=== PATIENT | male | born 1960 | race Caucasian/White ===

== ENCOUNTER 2025-05-28 09:23 | Outpatient (OUT) | payer OTHER, SELFPAY ==
--- OUTSIDE RECORDS SUMMARY | 2025-05-23 19:11 | XMS_ITS | Continuity of Care Document ---
Author Organization [facility] Address [address] [place] [address] Phone Care Team Providers Care Range Mounter Name Role Phone Dewey Harrington DO Primary Care Provider Dewey Harrington DO Attending Provider Care Teams Patient Care Team Team Status: Active Member Role/Relationship Status Dates Dewey Harrington DO Primary Care Provider Active Visit Care Team Team Status: Inactive Member Role/Relationship Status Dates Dewey Harrington DO Primary Care Provider Active Sta rt: May 16, 2025 End: May 16lidya Harrington DOAttchio ProviderActiveStart: May 16, 2025 End: May 16, 2025 Visit Care Team Team Status: Inactive Member Role/Relationship Status Dates Dewey Harrington DO Primary Care Provider Active Sta rt: May 23, 2025 End: May 23lidya Harrington DOAttending ProviderActiveStart: May 23, 2025 End: May 23, 2025 Visit Care Team Team Status: Inactive Member Role/Relationship Status Dates Dewey Harrington DO Primary Care Provider Active Sta rt: May 23, 2025 End: May 23lidya Harrington DOAttending ProviderActiveStart: May 23, 2025 End: May 23, 2025 Chief Complaint and Reason for Visit Chief Complaint Admit Date Medicare AWV Subsequent May 23, 9:48am Reason for Visit Admit Date Polycythemia May 23, 2025 9:48am Thrombocythemia May 23, 2025 9:48am Encounter for subsequent shmuel ual wellness visit in Medicare patient May 23, 2025 9:48am Reason for Referral Type Reason(s) Provider Provider Contact Information P meryvider Address Start Date Polycythemia D75.1 - Secondary wieahrgmxcfjL79.1 - Secondary polycythemiaReece Mello II Maricarmen Phone: [phone] [facility] [id number] Allergies, Adverse Reactions, Alerts Allergen Type Severity Reaction Last Updated Verified Status Comments bacitracin Allergy Unknown Unknown Reaction May 23, 2025 10:27am Yes Active WOUND GETS WET mupirocin Allergy Unknown Unknown Reaction May 23, 2025 10:27am Yes Active neomycinAllergyUnknownUnknown ReactionDece2024 10:27amYesActiveWOUND GETS WETpolymyxin BAllergyUnknownUnknown ReactionDe2024 10:27amYes ActiveWOUND GETS WET Social History Smoking Status Status Start Date End Date Date of Observa tion Never smoked tobacco (finding) May 23, 2025 12:12pm Observation Status Observation Response Date of Response Legal Sex Male (finding) Sex Assigned At [facility] 1959 Family History Relationship Condition Age at Onset Recorded Date/T keya father Myocardial infarction Unknown DeceasedUnknowngrandparentDeceasedUnknowngrandparentDeceasedUnknowngrandparent DeceasedUnknowngrandparentDeceasedUnknownmotherDeceasedUnknown Problems Active Problems Problem Diagnosis/Recorded Date Onset Date Stat Screening for prostate cancer May 16, 2024 1:55p m Unknown Active Polycythemia May 23, 2025 10:38am Unknown Active Hyperglycemia May 16, 2024 1:55pm Unknown A ctive Hyperlipidemia May 16, 2024 1:55pm Unknown Active Thrombocythemia May 23, 2025 10:39am Unknown Active Allergic reaction September 15, 2020 7:39am Unknown Active Hypertension May 16, 2024 1:55pm Unknown Ac tive Medications Medication Status Dose Units Route Directions Qty Days Refills S tart Date Stop Date End Date Reason(s) Instructions Adherence Amlodipine 10 mg tablet Discontinued September 14, 2020 11:00pmDecemb2023 2:02pmOlmesartan 20 mg tablet DiscontinuedApr2020 11:00pmDecemb2023 2:02pmAspirin 81 mg Tablet,Delayed Release (Dr/Ec)Bilmqi99NTGVChwflYmcre 2020 11:00pmUnknown Rosuvastatin (Crestor) 5 mg TabletDiscontinuedMGPOTwice a WeekApril 2020 11:00pmDecember 2023 2:02pmPrednisone 50 mg mpgowfCbdvgzuxsavg67BOFPMellz09 0April 2020 11:00pmDecember 2023 1:37pmFamotidine (Pepcid) 40 mg faeabhTlzrihcbazpu15VNQQWzxwo572Uujql 2020 11:00pmDecember 2023 1:38pm Sulfacetamide Sodium 10 % kccweZbphbhruwpcu6WYQIOMVW-EHFAJ3L8845Kwwrh 2020 11:00pmDecember 2023 1:38pmAmlodipine 10 mg vysaiwRbgfho81UIYTKccsf783 May 23, 2025 12:11pmUnknownOlmesartan 20 mg mytycaNidrcg48LRYPOwnqi596 May 23, 2025 12:11pmUnknownRosuvastatin (Crestor) 5 mg wlimscFnglzr3XEBH Yrkzl132Qeutkwqh2024 12:11pmUnknownBetamethasone Dipropionate 0.05 % kbuzkMvpkpq9MJYHALBREZSIMWwqih daily as neededMay 16, 2024 12:00amUnknown Amlodipine 10 mg nyikcuRwylftgptlle56DCWYQmcfg072Cjinpljt 2023 2:02pm May 23, 2025 12:12pmRosuvastatin (Crestor) 5 mg tabletDiscontinuedMGPO DailyMay 16, 2024 2:02pmDecember 2023 2:03pmOlmesartan 20 mg tablet Obzmkzwgqsgg45OJTCAokxh497Zinbnpzn 3rd, 2024 2:02pmDecemb2024 12:12pm Rosuvastatin (Crestor) 5 mg ukqnhuAgyaqwgtennq7CYLESlkfj283Taflawlm 3rd, 2024 2:03pmDecemb2024 12:12pmRoflumilast (Zoryve) 0.15 % jhgyjOodrcs4OEMRKM TOPICALJune 2024 11:00pmUnknown Immunizations Immunization Event Date Not Given Reason Dose Number Shine Worker Lot Number Reason(s) Given Vaccine Information Statement (VIS) Detail Administration Location Trivalent Influenza Vaccine April 19, 2019 Patient Refused Trivalent Influenza VaccineFebratient Refused Relevant Diagnostic Tests and/or Laboratory Data Laboratory Results Test Collection Date/Time Result Date/Time Result Interpretation Reference Range Result Comment Performing Site Corrected White Blood Count May 16, 2025 10:18am May 16, 2025 12:29pm 8.1 10*3/uL 4.1-10.5[facility] [id number] [address] [facility] [address]Tmuskhdgkul WBC CountMay 16, 2025 10:18amMay 16, 2025 12:29pm8.1 10*3/uL4.1-10.5FMer[facility] [id number] [address] [facility] [address]Uwo Blood CountMay 16, 2025 10:18amMay 16, 2025 12:29pm6.03 10*6/uLAbove high normal3.90-5.60[facility] [id number] [address] [facility] [address]VzbwsururxAirjtdez 3rd, 2025 10:18amMay 16, 2025 12:29pm 18.9 g/dLAbove high gqleol28.0-17.0[facility] [id number] [address] [facility] [address]YaeueebrxtVbeokbcy 3rd, 2025 10:182024 12:29pm 55.8 %Above high .8-50.0[facility] [id number] [address] [facility] 135[address]Xefo Corpuscular VolumeDece2024 10:182024 12:29pm92.5 fL83.5-101[facility] [id number] [address] [facility] [address]Gdje Corpuscular HemoglobinDece2024 10:18amDece2024 12:29pm31.4 pg27.5-35.2FMercy Health [facility] [id number] [address] [facility] 33[address]Qqkv Corpuscular Hemoglobin ConcentMay 16, 2025 10:18am May 16, 2025 12:29pm33.9 g/dL32.5-35.6FMercy [facility] [id number] [address] [facility] [address]Hnm Cell Distribution WidthMay 16, 2025 10:182024 12:29pm16.2 %Above high ipvrik79.0-14.8[facility] [id number] [address] [facility] [address]Pmiqyllk CountMay 16, 2025 10:182024 12:33tb106 10*3/uLAbove high tkoepu841-225QuestnrguZanesville City Hospital [facility] [id number] [address] [facility] [address]Liyj Platelet VolumeMay 16, 2025 10:182024 12:29pm7.4 fL6.6-10.1FMercy Health [facility] [id number] [address] [facility] [address]Dfxxozubgcy (%) (Auto)May 16, 2025 10:182024 1:34pm64.2 %.[facility] [id number] [address] [facility] [address]Tvtndrprbui (%) (Auto)May 16, 2025 10:182024 1:34pm21.1 %.[facility] [id number] [address] [facility] [address]Okdbnwypj (%) (Auto)May 16, 2025 10:182024 1:34pm8.3 %.[facility] [id number] [address] [facility] 17[address]Eiqrylvuzus (%) (Auto)May 16, 2025 10:182024 1:34pm5.8 %.[facility] [id number] [address] [facility] 46202Laagftajx (%) (Auto)May 16, 2025 10:182024 1:34pm0.6 %.[facility] [id number] [address] [facility] 48[address]Ioqigpjrz RBC Relative Count (auto)May 16, 2025 10:18am May 16, 2025 1:34pm0.1 /100{WBC}0-0.5FMercy [facility] [id number] [address] [id number] # (Auto)May 16, 2025 10:182024 1:34pm5.2 10*3/uL1.8-7.7FMercy Health [facility] [id number] [address] [address]Lymphocytes # (Auto)May 16, 2025 10:182024 1:34pm1.7 10*3/uL1.00-4.8[facility] [id number] [address] [place] [address]Ggcseglek # (Auto)May 16, 2025 10:182024 1:34pm0.7 10*3/uL0.0-0.8[facility] [id number] [address] [place], [place] [address]Eosinophils # (Auto)May 16, 2025 10:182024 1:34pm0.5 10*3/uLAbove high normal0.0-0.45[facility] [id number] [address] [place] [address]7088Fkddrlejj # (Auto)May 16, 2025 10:182024 1:34pm0.0 10*3/uL0.0-0.2FMercy Health [facility] [id number] [address] [place] [address] 30718Mds Blood Cell MorphologyMay 16, 2025 10:182024 1:34pmN/[facility] [id number] [address] [place], [place] [address]PolychromasiaDe2024 10:18amDecember 2024 1:34pmSlightZanesville City Hospital [facility]tr [id number] [address] [facility] [address]KjjljblmyjfaklOrfkxsps 2024 10:18amDecember 2024 1:34pmSlightZanesville City Hospital [facility]tr [id number] [address] [facility] 100[address]AgmovfrpoqauYhhrpwhn 2024 10:18amDecember 2024 1:34pm SlightZanesville City Hospital [facility] [id number] [address] [facility] 747[address]GhpjuaflsuiiRzpeyhfs 2024 10:18amDecember 2024 1:34pm SlightZanesville City Hospital [facility] [id number] [address] [facility] [address]Nehnorhg EstimateDeceer 2024 10:18amDecember 2024 1:34pmIncreasedNormalZanesville City Hospital Ctr [id number] [address] [facility] [address]18[address]Jrkwxwhw Morphology CommentMay 16, 2025 10:18amDecember 2024 1:34pmN/AFireMcCullough-[facility] [id number] [address] [place] [address] 38686Wsflq PlateletsMay 16, 2025 10:18amDeceer 2024 1:34pmSlightZanesville City Hospital [facility]tr [id number] [address] [facility] 63986Eqxsatg LevelDece2024 10:18Deceer 2024 12:38pm97 mg/wQ88-295JFX recommended reference rangeRandom Glucose Reference Range is dependent on time and content of last meal. Glucose of more than 200 mg/dL in a nonstressed, ambulatory subject supports the diagnosisof Diabetes Mellitus.[facility] [id number] [address] [facility] 39[address]Ctdaw Urea NitrogenDece2024 10:18amDecember 2024 12:38pm19 mg/dL7-[facility] [id number] [address] [facility] 135[address]ElptebjbpnTtjcrirq 3rd, 2025 10:18amDece2024 12:38pm 0.73 mg/dL0.70-1.30[facility] [id number] [address] [facility] [address]35[address]Vetoewidp GFR (CKD-EPI)May 16, 2025 10:18amMay 16, 2025 12:38pm> 60.0 mL/MinZanesville City Hospital Ctr [id number] [address] [address]Sodium LevelDecemb2024 10:18amDece2024 12:18eo402 mmol/T978-525VgiowobxrZanesville City Hospital Ctr [id number] [address] [address]Potassium Levelce2024 10:18amDece2024 12:38pm4.0 mmol/L3.5-5.1FMercy Health [facility] [id number] [address] [facility] 17851Kmnjrxzd Levelce2024 10:18amDece2024 12:90ta962 mmol/J19-763PggorbjbcZanesville City Hospital Ctr [id number] [address] [address]Carbon Dioxide LevelDece2024 10:18Dece2024 12:38pm32.6 mmol/LAbove high pbzyjy41.0-31.0[facility] [id number] [address] [facility] [address]Bewvo Gapce2024 10:18amDece2024 12:38pm 10.4 mEq/L6.0-15.0[facility] [id number] [address] [address]Calcium LevelDece2024 10:18amDece2024 12:38pm9.9 mg/dL8.6-10.3FMercy Health [facility] [id number] [address] [address]Total ProteinDecemb2024 10:18Dece2024 12:38pm7.8 g/dL6.4-8.9[facility] [id number] [address] [facility] 80158YwnblcjKsrmxsxo 2024 10:18amMay 16, 2025 12:38pm4.6 g/dL3.5-5.7FMercy Health [facility] [id number] [address] [facility] 04806JcpytuyxGpfxbxea 3rd, 2025 10:18amDe2024 12:38pm3.2 g/dLZanesville City Hospital Ctr [id number] [address] [facility] [address]70[address]Bznsnry/Globulin Ratioce2024 10:182024 12:38pm1.4FMercy Health [facility] [id number] [address] [facility] 20404Lxznz BilirubinMay 16, 2025 10:18am2024 12:38pm0.8 mg/dL0.3-1.0[facility] [id number] [address] [facility] [address]68[address]Ewweykcyw Amino Transf (AST/SGOT)May 16, 2025 10:18am May 16, 2025 12:38pm20 U/F42-23GfneusuxuZanesville City Hospital Ctr [id number] [address] [facility] [address]Goynwwk Aminotransferase (ALT/SGPT)May 16, 2025 10:18am May 16, 2025 12:38pm26 U/L7-52[facility] [id number] [address] [facility] [address]Lazzswjc PhosphataseDece2024 10:18amMay 16, 2025 12:38pm96 U/A95-862DxqjkilvfZanesville City Hospital Ctr [id number] [address] [place] [address] 39492Lpvsxgvmpfq LevelDece2024 10:18amMay 16, 2025 12:70at773 mg/sX198-168Fshc less than 200 mg/dl low riskChol 201-239 mg/dl borderline riskChol 240 mg/dl and greater high riskZanesville City Hospital Ctr [id number] [address] [facility] 55[address]GFH CholesterolMay 16, 2025 10:182024 12:38pm46 mg/kG62-79TEV CHOL ATP-III CLASSIFICATION Cardiovascular RiskHDL > or equal to 60 mg/dL LOWHDL < 40 mg/dL HIGHZanesville City Hospital Ctr [id number] [address] [facility] [address]Exoczhoxkpviu LevelMay 16, 2025 10:18[facility] 2024 12:74in966 mg/dL0-149TRIG ATP III CLASSIFICATIONTRIG less than 150 mg/dL NormalTRIG 150-199 mg/dL Borderline highTRIG 200-500 mg/dL High TRIG greater than 500 mg/dL Very highStandard traceable to the Center for Disease Conrtrol and Prevention (CDC) test method.[facility] [id number] [address] [facility] 630[address]RBX Cholesterol, CalculatedMay 16, 2025 10:18[facility] 2024 12:48bo347 mg/dLAbove high normal0-100LDL ATP III CLASSIFICATIONLDL less than 100 mg/dL OptimalLDL 100-129 mg/dL Near or above ocuoowyNRE927-997 mg/dL Borderline highLDL 160-189 mg/dL HighLDL greater than 189 mg/dL Very high [facility] [id number] [address] [facility] 922[address]RAGU CholesterolMay 16, 2025 10:182024 12:38pm24 mg/dLZanesville City Hospital Ctr [id number] [address] [facility] 48120Xkvruvbuhmz/HDL RatioMay 16, 2025 10:182024 12:38pm4.3<5.0[facility] [id number] [address] [facility] 60[address]Ysgndcsl Specific Antigen ScreenMay 16, 2025 10:18am May 16, 2025 12:44pm1.690 ng/mL0.000-4.000Serial tumor marker results determined by assays using different manufacturers or methods may not be comparable.[facility] Laboratory planning rn and method:DERICK Spotfav Reporting TechnologiesEL DXI, CHEMILUMINESCENT IMMUNOASSAY.[facility] [id number] [address] [facility] 08183Etwcmkh Stimulating Hormone 3rd GenMay 16, 2025 10:18am May 16, 2025 12:52pm1.72 u[iU]/mL0.45-5.33[facility] [id number] [address] [facility] 422[address]Iptsfakg Creatinine Clearance (ChemDebanner behavioral health hospital 2024 10:18am May 16, 2025 12:38pmN/[facility] [id number] [address] [facility] 158[address]Gvkortqnog B2xPxcmnwnf2024 10:18amDece2024 2:43pm5.8 %Above high normal4.3-5.6Increased risk for diabetes: 5.7 - 6.4diabetes: >6.4glycemic control for adults with diabetes: <7.0[facility] [id number] [address] [facility] 08[address]Iibyzbqhu Average GlucoseMay 16, 2025 10:18amMay 16, 2025 2:04vg704 mg/dLZanesville City Hospital [facility]tr [id number] [address] [facility] [address] Vital Signs Vital Reading Result Reference Range Collection Date/Time Height 69 [in_i] May 23, 2025 10:84cfFjoqnt25.26 kgDece2024 10:17amHeart Rate67 /psi85-107RemnfrmhMay 23, 2025 10:17amRespiratory rate18 /yki98-35IpsntledMay 23, 2025 10:17amOxygen saturation by Pulse vvvitcum76 %95-100May 23, 2025 10:17amBP Pcedqwgs726 mm[Hg]100-140Decemb2024 10:17amBP Ylamzkobf81 mm[Hg]60-100Decemb2024 10:17amBMI (Body Mass Index)29.3 kg/d2JsadcpiwMay 23, 2025 10:17am Advance Directives Advance Directive Response Recorded Date/ Time Advance Directives No July 13, 2023 9:29am Insurance Providers Guarantor Gerald Marrero Address [address] [place] [address]Rarzrpl Info.Home Phone: Coverage Status Update:2024 Payer Group Member ID Coverage Type Subscriber Relationship to Subscriber Effective Date Expiration Date Medicaid Not [id number] Mccutcheon Id: [id number] [address] [place] [address] Home Phone: [employer] Medicaid [id number] M[place]utcheon Id: [id number] [address] [place] [address] Home Phone: SelfBlorenzo Molina PERRY [id number] Mccutcheon Id: [id number] [address] [place] [address] Home Phone: Self Encounters Encounter Location(s) Arrival/Admit Date Discharge/Departure Date Discharge/Departure Disposition Provider(s) Departed Clinical -Lab [facility] May 16, 2025 10:16am May 16, 2025 10:17am Discharged to home care or self care (routine discharge) Deangelo Calderon DO Departed Physician/ Provider Office Visit -[facility] Medicine [facility] May 23, 2025 9:48am May 23, 2025 11:09am Discharged to home care or self care (routine discharge) Deangelo Calderon DO Departed Clinical -EKG [facility] May 23, 2025 10:44am May 23, 2025 10:45am Discharged to home care or self care (routine discharge) Deangelo Calderon DO Recent Diagnosis Onset Date Admit Date Polycythemia Unknown May 23 9:48am Thrombocythemia Unknown May 23 9:48am Encounter for subsequent shmuel ual wellness visit in Medicare patient Unknown May 23, 2025 9:48am Assessments Diagnosis Onset Date Resolution Status Admit Date Polycythemia acuteDecemb2024 9:48amThrombocythemiaacuteDecemb2024 9:48am Encounter for subsequent annual wellness visit in Medicare patientnoneactive May 23, 2025 9:48am Plan of Treatment Author Ashley Michelle [facility] HospitalAuthoredDebanner [facility] 2024 11:13amPersonalized health advice was given to the beneficiary with a referral, if appropriate, to health education of preventative counseling services or programs aimed at reducing identified risk factors and improving self-management or community-based lifestyle interventions to reduce health risks and promote self-management and wellness, including weight loss, physical activity, smoking cessation, fall prevention and nutrition. A written plan for screenings discussed, including colonoscopy, mammography, flu vaccination, other vaccinations if at risk, routine lab studies, eye exams, glaucoma screening, skin checks, risk factors for medical problems discussed, including BP control, obesity, and need for consistent exercise. Counseling was provided here today - specifically in regard to any positively answered questions as noted above Red blood cell counts are elevated. I discussed this with him at length with patient. He states that he stays hydrated with water. He does drink alcohol but not daily. I would recommend that he consult with [facility]. Patient as in agreement and referral was initiated. EKG was updated today. He denies chest pain, shortness of breath or palpitations. Platelets elevated. Referral to [facility]. Sooner if needed, ER if concerns. The above note was written by Ashley Michelle LPN , acting as human recorder, note dictated by Dr. Harrington. Future Tests Future scheduled test information is unavailable Pending Tests Test Name Ordered Date Scheduled Date Comprehensive Metabolic Panel May 23 10:47am 6 Months Future Visits Future appointment information is unavailable Future Procedures Procedure Name Ordered Date Scheduled Date Complete Blood Count Auto Diff May 23 10:47am 6 Months Lipid Panel May 23, 2025 10:47am 6 Mo nths Thyroid Stimulating Hormone May 23, 2025 10:47am 6 Months [facility] ECG *PCP OFFICE ONLY* May 23, 2025 10 :44am May 23, 2025 10:44am AMB Cologuard May 23, 2025 10:36am Future Medications Future medication information is unavailable Patient Instructions Patient instructions are unavailable
--- NOTE | 2025-05-28 | XR_ITS ---
The [address] [address] Patient Name: LUCAS GUERRA MRN: [id number] date: 1960 Sex: M Assigned Patient Location: [facility] Current Patient Location: [facility] Accession/Order Number: [id number] Exam Date: 05/28/2025 11:43 Report Date: 05/28/2025 12:03 At the request of: CASANDRA SINGLETARY DO Procedure: XR knee LT 4V LEFT KNEE - 4 views COMPARISON: None CLINICAL DATA: Stabbing left knee pain medially. No specific injury. AP, lateral, tunnel and patellar views were obtained. There is no acute fracture or dislocation. There is mild to moderate narrowing of the medial tibiofemoral joint compartment. No patellar subluxation is seen. There are tiny marginal spurs. A trace amount joint fluid is visualized. There is no focal soft tissue swelling. Mild atherosclerotic plaque is visualized involving vessels in the dotsg-dm-qxtv. XR/XR knee LT 4V IMPRESSION: DEGENERATIVE CHANGE, GREATEST MEDIALLY. Impression dictated by: Chelsie Thompson M.D. 05/28/2025 12:03 PM Dictation Location: [employer] Electronically authenticated by: [id number] Y Date: 05/28/2025 12:03
--- OUTSIDE RECORDS SUMMARY | 2025-05-28 09:25 | XMS_ITS | Clinical Summary ---
Author Organization [facility] Address [address] [place] [address] Care Team Providers [employer] Name Role Phone Unavailable Primary Care Provider Unavailabl e Allergies Active AllergyReactionsCriticalityNoted DateCommentsBacitracin-Polymyxin B 03/14/20241080Qzqereddfz62/01/2024 Medications MedicationSigDispense QuantityRefillsLast FilledStart DateEnd DateStatus tacrolimus (Protopic) 0.1 % ointment 02/04/2024ctive olmesartan (BENIcar) 20 MG tablet Take 20 mg by mouth Daily10/05/2023ctive amLODIPine (Norvasc) 10 MG tablet Take 10 mg by mouth Daily01/10/2024ctive betamethasone dipropionate 0.05 % cream Indications:Other atopic dermatitisApply to affected areas twice daily while flaring.04/18/2024ctive Active Problems No known active problems Social History Tobacco UseTypesPacks/DayYears UsedDateSmoking Tobacco: NeverSmokeless Tobacco: Never Tobacco Cessation:Counseling Given: Not Answered Sex and Gender InformationValueDate RecordedSex Assigned at BirthNot on file Legal XgiZsgs6508/26/2022 6:46 PM EDTGender IdentityNot on fileSexual Orientation Not on file Plan of Treatment DateTypeDepartmentCare Team (Latest Contact Info)Lururaebtey19/22/2026 10:20 AM EDTOffice Visit [facility] [address] [place] [address] Alena Merritt PA [address] [place] [address] Insurance
== END 2025-05-28 09:24 | disposition home or self-care (01) ==
LOC: RAD 09:23
PROVIDERS: PCP Family Medicine; Visit Provider Orthopaedic Surgery Orthopaedic Trauma
DX: M25.562 Pain in left knee (principal); M17.12 Unilateral primary osteoarthritis, left knee
CPT/HCPCS: 73564